=== PATIENT | male | born 1950 | race Caucasian/White ===

== ENCOUNTER → 2017-07-24 | Outpatient (CLI) | payer MEDICARE ==
[~2017-07-24] MED LIST: ASPI-496 PO; CAND8TAB PO; CHOL100012 PO; CIPR500T3 PO; DESO60CR2 TP; DHA PO; DOCU100C33 PO; ECOTRIN PO; EPA PO; FENT1PAT77 TD; HYDR-3237 PO; HYDR28.430; METO25TA35 PO; METR500T PO; MORP15TA3 PO; MULT-717 PO; OMEGA-3 + VITA1 EACH PO; OMNIPAQUE 350 MG/ML, 100ML BOTTLE ONE; OXYC1TAB7 PO; ROSU20TA PO; SENN-31 PO; SILV20CR13 RC; TRAM-47 PO
== END | disposition home or self-care (01) ==
LOC: RAD 13:05
PROVIDERS: ATTEND Internal Medicine Gastroenterology
DX: K40.20 Bilateral inguinal hernia, without obstruction or gangrene, not specified as recurrent (principal); K76.0 Fatty (change of) liver, not elsewhere classified; N28.89 Other specified disorders of kidney and ureter; J98.11 Atelectasis; I70.0 Atherosclerosis of aorta; C21.0 Malignant neoplasm of anus, unspecified
CPT/HCPCS: 74177; Q9967

== ENCOUNTER → 2017-08-28 | Outpatient (CLI) | payer MEDICARE ==
[~2017-08-28] MED LIST changes: -OMNIPAQUE 350 MG/ML, 100ML BOTTLE ONE; +REGADENOSON 0.4 MG/5 ML SYRINGE ONE
== END | disposition home or self-care (01) ==
LOC: RAD 08:17
PROVIDERS: ATTEND Internal Medicine Cardiovascular Disease
DX: R00.2 Palpitations (principal); R06.02 Shortness of breath
CPT/HCPCS: 78452; 93017; A9502; C9898; J2785

== ENCOUNTER → 2017-10-02 | Outpatient (CLI) | payer MEDICARE ==
[~2017-10-02] MED LIST changes: -REGADENOSON 0.4 MG/5 ML SYRINGE ONE
== END ==
LOC: CFH 10:15
PROVIDERS: ATTEND Otolaryngology
DX: Z02.9 Encounter for administrative examinations, unspecified (principal)

== ENCOUNTER → 2019-07-02 | Outpatient (CLI) | payer MEDICARE ==
[~2019-07-02] MED LIST changes: -CAND8TAB PO; +CAND8TAB10 PO; +MORP-29 PO; -MORP15TA3 PO; +REGADENOSON 0.4 MG/5 ML SYRINGE ONE; -ROSU20TA PO; +ROSU20TA2 PO
== END | disposition home or self-care (01) ==
LOC: CFH 08:19
PROVIDERS: ATTEND Internal Medicine Cardiovascular Disease
DX: I10 Essential (primary) hypertension (principal); I48.0 Paroxysmal atrial fibrillation
CPT/HCPCS: 78452; 93015; A9502; J2785